=== PATIENT | female | born 1950 | race Caucasian/White ===

== ENCOUNTER 2019-01-17 09:08 | Emergency (ER) | payer SELFPAY ==
[~2019-01-17] VITALS: Ht 162.6 cm; Wt 77.0 kg
[2019-01-17] MEDS ORDERED: RISPERIDONE 1MG TABLET PO SCH (17:00)
[2019-01-17 17:44] VITALS: BP 168/98
== END 2019-01-17 17:46 | disposition home or self-care (01) ==
LOC: ER 09:45
DX: F23 Brief psychotic disorder (principal); F60.1 Schizoid personality disorder
CPT/HCPCS: 99284